=== PATIENT | female | born 1985 | race Caucasian/White ===

== ENCOUNTER 2021-07-18 14:55 | Emergency (ER) | payer MEDICAID ==
[~2021-07-18] VITALS: Ht 160 cm; Wt 81.6 kg
[2021-07-18] MEDS ORDERED: diphenhydrAMINE HCL 50 MG/ML VIAL IM ONE (15:30)
[2021-07-18] MEDS ORDERED: IV NS 0.9% 1,000 ML BAG IV ONE (15:30)
[2021-07-18] MEDS ORDERED: PROCHLORPERAZINE EDISYLATE 10 MG/2 ML VIAL IVP ONE (15:30)
--- NOTE | 2021-07-18 15:45 | NUR ---
started line, blod specimen collected and sent to the lab. the line is saline locked
--- NOTE | 2021-07-18 15:46 | NUR ---
taken to ct
--- NOTE | 2021-07-18 15:53 | NUR ---
back from ct
[2021-07-18 16:05] LABS: BASOPHILS # (AUTO) 0.1 K/uL (0.0-0.2); BASOPHILS % (AUTO) 1.1 % (0.0-2.0); EOSINOPHILS % (AUTO) 7.5 % (0.0-6.0); HEMATOCRIT 38 % (33-45); HEMOGLOBIN 12.3 g/dL (11.5-14.8); LYMPHOCYTES # (AUTO) 2.4 K/uL (0.8-4.8); LYMPHOCYTES % (AUTO) 29.1 % (20.0-44.0); MEAN CORPUSCULAR HGB CONC 32 g/dl (31.0-36.0); MEAN CORPUSCULAR VOLUME 81 fL (82-100); MONOCYTES # (AUTO) 0.5 K/uL (0.1-1.30); MONOCYTES % (AUTO) 5.8 % (2.0-12.0); NEUTROPHILS # (AUTO) 4.7 K/uL (1.8-8.9); NEUTROPHILS % (AUTO) 56.5 % (43.0-81.0); PLATELET COUNT (AUTO) 316 K/uL (150-450); RED BLOOD CELL COUNT(AUTO) 4.71 MIL/uL (4.0-5.2); WHITE BLOOD COUNT (AUTO) 8.3 K/uL (4.3-11.0)
[2021-07-18 16:13] LABS: CALCIUM, SERUM 8.6 mg/dL (8.5-10.1); CARBON DIOXIDE 28 mmol/L (21-32); CHLORIDE 104 mmol/L (98-107); CREATININE 0.7 mg/dL (0.6-1.3); GLUCOSE 114 mg/dL (74-106); POTASSIUM 3.7 mmol/L (3.5-5.1); SODIUM SERUM 139 mmol/L (136-145); UREA NITROGEN, BLOOD 12 mg/dL (7-18)
[2021-07-18] MEDS ORDERED: PROCHLORPERAZINE EDISYLATE 10 MG/2 ML VIAL ONE (16:13)
[2021-07-18] MEDS ORDERED: diphenhydrAMINE HCL 50 MG/ML VIAL ONE (16:13)
[2021-07-18 17:38] VITALS: BP 124/69
--- NOTE | 2021-07-18 17:38 | NUR ---
Patient discharged to home in stable condition. Written and verbal after care instructions given. Patient verbalizes understanding of instruction. PT ambulatory with a steady gait. DC IV W/ NO ACTIVE BLEEDING.
== END 2021-07-18 17:39 | disposition home or self-care (01) ==
LOC: ER 15:06
DX: G43.909 Migraine, unspecified, not intractable, without status migrainosus (principal); Z98.890 Other specified postprocedural states
CPT/HCPCS: 36415; 70450; 71045; 80048; 82962; 84484; 85025; 93005 ×2; 96361; 96372; 96374; 99285; J0780; J1200